=== PATIENT | female | born 1970 | race Caucasian/White ===

== ENCOUNTER 2019-12-29 06:50 | Day surgery (SDC) | payer OTHER ==
[~2019-12-29] VITALS: Ht 167.6 cm; Wt 61.2 kg
[~2019-12-29 06:50] MED LIST: CALCIUM600 MG PO; IBUPROFEN800 MG PO; LEVOTHYROXINE50 MCG PO; MULTIVITAMINS1 EAC7 PO; NAPROSYN500 MG PO; NORCO 5-325 TA1 EACH PO; PERCOCET 5-3251 EACH PO
[2019-12-29] MEDS ORDERED: HYDROCODON-ACE1 EA10 PO (08:42)
[2019-12-29] MEDS ORDERED: GABAPENTIN300 MG PO (08:43)
--- NOTE | 2019-12-29 08:48 | NUR ---
12/29/19 0848 Ophelia Beverly 0840 PATIENT ARRIVES TO PACU UNRESPONSIVE TO PAIN. RESP EVEN AND UNLABORED, ROOM AIR SATS >93%. ICE TO RIGHT WRIST. WRIST ELEVATED WITH PILLOWS.
--- NOTE | 2020-01-01 07:26 | OR ---
[facility] [address] [place], [place] [address] Signed DATE OF OPERATION: 12/29/2019 SURGEON: Jessú Melton MD PREOPERATIVE DIAGNOSIS: Carpal tunnel syndrome, right. POSTOPERATIVE DIAGNOSIS: Carpal tunnel syndrome, right. PROCEDURE PERFORMED: Right carpal tunnel release. ANESTHESIA: Fidelis block. CONSOLE ASSEMBLER: None. TOURNIQUET TIME: 16 minutes. BRIEF HISTORY: The patient is a 49-year-old female with severe carpal tunnel. Her nerve conduction study showed nonresponsive nerves. Risks and benefits of operative treatment discussed with her and she elected to proceed. DESCRIPTION OF PROCEDURE: Once consent was obtained, she was taken to the operating room. After adequate anesthesia, she was placed on operating room table, all downside pressure points were well padded. After establishment of Carlos Eduardo block, hand was prepped and draped in a standard sterile fashion. A 1.5 cm incision was made in the distal wrist crease carried through skin and subcutaneous tissue. Palmaris longus was identified, retracted and protected. Transverse carpal ligament was then identified and dissected free of overlying soft tissue under loupe magnification. It was released proximally 1 cm and distally to the distal extent of the ligament. This was palpated using the [place] to ensure that was completely released and it was. The wound was copiously irrigated and closed with 3-0 nylon and the wound was infiltrated with 5 mL of 0.25% plain Marcaine. The wound was dressed with bacitracin, Adaptic, 4 x 8s, and gauze. She tolerated the procedure well. All sponge, needle, and instrument counts were correct. Electronically Signed By: JESÚS MELTON MD 01/01/20 0726 PATIENT NAME: RADHA BARRERA OPERATIVE REPORT DATE OF : 68 REPORT #: [id number] PHYSICIAN: JESÚS MELTON MD PCP: ELIEZER CERDA REPORT IS CONFIDENTIAL AND NOT TO BE RELEASED WITHOUT AUTHORIZATION [address] [address] Signed Jesús Melton MD BA/MODL /[id number] Copies: ~ Electronically Signed By: JESÚS MELTON MD 01/01/20 0726 PATIENT NAME: RADHA BARRERA OPERATIVE REPORT DATE OF : 68 REPORT #: [id number] PHYSICIAN: JEÚSS MELTON MD PCP: ELIEZER CERDA REPORT IS CONFIDENTIAL AND NOT TO BE RELEASED WITHOUT AUTHORIZATION
== END 2019-12-29 09:25 | disposition home or self-care (01) ==
LOC: DS 06:50
PROVIDERS: Specialist
PROC: 01N50ZZ Release Median Nerve, Open Approach (ICD-10-PCS; principal; 2019-12-29 09:30)
DX: G56.01 Carpal tunnel syndrome, right upper limb (principal); Z79.899 Other long term (current) drug therapy; Z87.891 Personal history of nicotine dependence
CPT/HCPCS: 84703; J0690; J1885; J2001; J2704; J7121

== ENCOUNTER 2020-01-07 19:45 | Emergency (ER) | payer OTHER ==
[~2020-01-07 19:45] MED LIST changes: +GABAPENTIN300 MG PO; +HYDROCODON-ACE1 EA10 PO
[2020-01-07] MEDS ORDERED: NORCO 5-325 TA1 EACH PO (22:42)
== END 2020-01-07 22:48 | disposition home or self-care (01) ==
LOC: ED 19:45
DX: S02.2XXA Fracture of nasal bones, initial encounter for closed fracture (principal); S01.81XA Laceration without foreign body of other part of head, initial encounter; Z87.891 Personal history of nicotine dependence; Z88.8 Allergy status to other drugs, medicaments and biological substances; Z79.899 Other long term (current) drug therapy; X58.XXXA Exposure to other specified factors, initial encounter
CPT/HCPCS: 12013; 70450; 70486; 72125; 99284-25

== ENCOUNTER 2020-01-22 05:50 | Day surgery (SDC) | payer OTHER ==
[~2020-01-22] VITALS: Ht 167.6 cm; Wt 61.2 kg
[2020-01-22] MEDS ORDERED: HYDROCODON-ACE1 EA10 PO (07:24)
--- NOTE | 2020-01-22 07:29 | NUR ---
01/22/20 0729 Nato Aguirre RESPONDS TO VOICE ON ENTRY TO PACU. DENIES NAS[place] OR PAIN. FALLS ASLEEP EASILY.
--- NOTE | 2020-01-22 09:01 | OR ---
[facility] [address] [place], [place] [address] Signed DATE OF OPERATION: 01/22/2020 SURGEON: Jesús Melton MD PREOPERATIVE DIAGNOSIS: Carpal tunnel syndrome, left. POSTOPERATIVE DIAGNOSIS: Carpal tunnel syndrome, left. PROCEDURE PERFORMED: Carpal tunnel release, left. GRINDER WATCH PARTS: TRUNG Love. ANESTHESIA: Carlos Eduardo block. TOURNIQUET TIME: 20 minutes. BRIEF HISTORY: Francy is a 49-year-old female with bilateral carpal tunnel. She had undergone successful release and wished to proceed with left. Risks, benefits, alternatives were once again discussed and she elected to proceed. DESCRIPTION OF PROCEDURE: Once consent was obtained, she was taken to the operating room. After adequate anesthesia, the left arm was prepped and draped in a standard sterile fashion. A 1.5 cm incision was made in the distal wrist crease carried through skin and subcutaneous tissue. The palmaris longus was identified, retracted and protected. Transverse carpal ligament was then identified under loupe magnification, dissected free of overlying soft tissue proximally and distally. It was then released proximally a cm to the distal extent. This was palpated using a Atlas and found to be completely released. The wound was copiously irrigated with antibiotic solution, closed with 3-0 nylon and infiltrated with 5 mL of 0.25% plain Marcaine. The wound was dressed with bacitracin, Adaptic, 4 x 8s, and gauze. She tolerated the procedure well. All sponge, needle, and instrument counts correct. Electronically Signed By: JESÚS MELTON MD 01/22/20 0901 PATIENT NAME: FRANCY BARRERA OPERATIVE REPORT DATE OF : 68 REPORT #: [id number] PHYSICIAN: JESÚS MELTON MD PCP: CHAD MAST REPORT IS CONFIDENTIAL AND NOT TO BE RELEASED WITHOUT AUTHORIZATION [address] [address] Signed Jesús Melton MD BA/MODL /[id number] Copies: ~ Electronically Signed By: JESÚS MELTON MD 01/22/20 0901 PATIENT NAME: FRANCY BARRERA OPERATIVE REPORT DATE OF : 68 REPORT #: [id number] PHYSICIAN: JESÚS MELTON MD PCP: CHAD MAST REPORT IS CONFIDENTIAL AND NOT TO BE RELEASED WITHOUT AUTHORIZATION
== END 2020-01-22 08:04 | disposition home or self-care (01) ==
LOC: DS 05:50
PROVIDERS: Specialist
PROC: 01N50ZZ Release Median Nerve, Open Approach (ICD-10-PCS; principal; 2020-01-22 06:30)
DX: G56.02 Carpal tunnel syndrome, left upper limb (principal); E03.9 Hypothyroidism, unspecified; Z87.891 Personal history of nicotine dependence; Z98.890 Other specified postprocedural states; Z79.899 Other long term (current) drug therapy
CPT/HCPCS: 01810; J0690; J1100; J1885; J2250; J2405; J2704; J2765; J3010; J7121

== ENCOUNTER 2021-01-02 06:30 | Day surgery (SDC) | payer OTHER ==
[~2021-01-02] VITALS: Ht 167.6 cm; Wt 60.0 kg
[~2021-01-02 06:30] MED LIST changes: +ANDROGEL75 G1 TD; +BLACK COHOSH EX80 MG PO; +CONTRAVE ER 8-1 EACH PO; +CRANBERRY 12,61 EACH PO; +D3-200050 MCG PO; +ESTRADIOL2 MG PO; +PROGESTERONE200 MG PO; +ZYNCOL30 MG PO
--- NOTE | 2021-01-02 06:54 | NUR ---
FIRST AFRIN SPRAY DONE.
--- NOTE | 2021-01-02 08:23 | NUR ---
01/02/21 0823 Ophelia Beverly 0820 PATIENT ARRIVES TO PACU UNRESPONSIVE TO VERBAL STIMULI. RESP EVEN AND UNLABORED, ORAL AIRWAY IN PLACE. MASK AT 6 LITERS.
--- NOTE | 2021-01-02 09:12 | NUR ---
PATIENT BACK TO DAYSURGERY, BEDSIDE REPORT FROM WENDY CRYSTAL. PATIENT DRINKING FLUIDS, APPEARS DROWSY. AT BEDSIDE. PATIENT SL FROM IV. VERBALIZED TO PATIENT WHEN READY TO WALK TO BATHROOM TO ALERT STAFF. PATIENT AND VERBALIZED UNDERSTANDING. CALL LIGHT WITHIN REACH.
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
--- NOTE | 2021-01-02 09:26 | NUR ---
CHANGED DRIP PAD, MODERATE AMOUNT OF DRAINAGE, NOTED SHADOWING. PROVIDED WITH INSTRUCTION ON HOW TO USE GAUZE AND PAPER TAPE TO PROVIDE DRIP PAD. VERBALIZED UNDERSTANDING, AND ASKED QUESTIONS THAT WERE ADDRESSED.
--- NOTE | 2021-01-02 10:35 | NUR ---
PATIENT UP AND VOIDING WELL, CALL TO DR. MYERS. OKAYED TO DISCHARGE HOME. ADDRESSED PATIENT'S CONCERNS WITH DR. MYERS IN REGARDS TO EXERCISE. DR. MYERS OKAYED LIGHT WALK AFTER PAIN DECREASES POST OP AND THEN CAN ADVANCE TO BRISK WALK. REPORTED TO PATIENT AND PROVIDED INSTRUCTION. PATIENT DRESSED AND TOLERATED ACTIVITY WELL. CHANGED DRIP PAD, SMALL AMOUNT OF BLOODY DRAINAGE AFTER ACTIVITY. PROVIDED PATIENT WITH DISCHARGE INSTRUCTION, PATIENT AND VERBALIZED UNDERSTANDING. ANSWERED ALL QUESTIONS AND CONCERNS. PROVIDED WHEELCHAIR RIDE TO FRONT, PATIENT TRANSFERED INTO CAR.
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
== END 2021-01-02 10:35 | disposition home or self-care (01) ==
LOC: OPS 06:30 → DS 06:30 → OPS 08:15
PROVIDERS: ATTEND Otolaryngology
PROC: 09SM0ZZ Reposition Nasal Septum, Open Approach (ICD-10-PCS; principal; 2021-01-02 06:45)
DX: J34.2 Deviated nasal septum (principal); J34.3 Hypertrophy of nasal turbinates
CPT/HCPCS: 00160; J1100; J2001; J2250; J2405; J2704; J7121